=== PATIENT | female | born 1960 | race African-American/Black ===

== ENCOUNTER 2016-08-28 14:26 | Emergency (ER) | payer OTHER ==
[~2016-08-28] VITALS: Ht 157.5 cm; Wt 45.4 kg
--- NOTE | 2016-08-28 14:41 | NUR ---
PT BIB FRIEND C/O ANXIETY STATING SHE IS HAVING A "PANIC ATTACK" WITH HX OF PANIC ATTACKS AND ANXIETY. PT APPEARS ANXIOUS AND IS TEARY UPON EXAM. RESP EVEN UNLABORED. REPORTS CP X4-5 DAYS AND 3 DAYS OF N/V X1/D. DIARRHEA RESOLVED NOW. DENIES BLOOD IN VOMIT OR STOOL. NAD NOTED. AMBULATORY WITH STEADY GAIT. IN ER BED 12.
[2016-08-28 15:52] LABS: BASOPHILS % (AUTO) 0.3 % (0.0-2.0); EOSINOPHILS % (AUTO) 0.7 % (0.0-6.0); HEMATOCRIT 43 % (33-45); HEMOGLOBIN 13.9 g/dL (11.5-14.8); LYMPHOCYTES # (AUTO) 1.1 /CMM (0.8-4.8); LYMPHOCYTES % (AUTO) 16.6 % (20.0-44.0); MEAN CORPUSCULAR HEMOGLOBIN 27 PG (26.0-33.0); MEAN CORPUSCULAR HGB CONC 32 g/dl (31.0-36.0); MEAN CORPUSCULAR VOLUME 84 fL (82-100); MONOCYTES # (AUTO) 0.4 /CMM (0.1-1.30); MONOCYTES % (AUTO) 6.5 % (2.0-12.0); NEUTROPHILS # (AUTO) 4.9 /CMM (1.8-8.9); NEUTROPHILS % (AUTO) 75.9 % (43.0-81.0); PLATELET COUNT (AUTO) 326 /CMM (150-450); RDW COEFFICIENT OF VARIATION 12.4 (11.5-15.0); RED BLOOD CELL COUNT(AUTO) 5.09 MIL/uL (4.0-5.2); WHITE BLOOD COUNT (AUTO) 6.4 K/uL (4.3-11.0)
[2016-08-28] MEDS ORDERED: IV NS 0.9% 1,000 ML ONE (16:00)
[2016-08-28] MEDS ORDERED: IV SET PRIMARY 1 EA INFUS.SET MC ONE (16:00)
[2016-08-28] MEDS ORDERED: MORPHINE SULFATE INJ 4 MG/ML DISP.SYRIN ONE (16:00)
[2016-08-28] MEDS ORDERED: ONDANSETRON HCL/PF 4 MG/2 ML VIAL ONE (16:00)
[2016-08-28 16:06] LABS: PROTHROMBIN TIME 10.4 SECS (9.5-12.7)
[2016-08-28 16:09] LABS: ALBUMIN 3.4 g/dL (3.4-5.0); BILIRUBIN,TOTAL 0.2 mg/dL (0.2-1.0); CALCIUM, SERUM 9.2 mg/dL (8.5-10.1); CREATININE 0.7 mg/dL (0.6-1.3); TOTAL PROTEIN, SERUM 6.5 g/dL (6.4-8.2)
[2016-08-28] MEDS: IV NS 0.9% 1,000 ML BAG IV ONE (16:17)
[2016-08-28] MEDS: MORPHINE SULFATE INJ 2 MG/ML DISP.SYRIN IV ONE (16:17)
[2016-08-28] MEDS: ONDANSETRON HCL/PF 4 MG/2 ML VIAL IVP ONE (16:18)
[2016-08-28] MEDS ORDERED: IOHEXOL-350 100 ML VIAL IV ONE (16:20)
[2016-08-28] MEDS ORDERED: IV NS 0.9% 250 ML IV ONE (16:20)
--- NOTE | 2016-08-28 16:23 | NUR ---
RELISH MAKER AT BEDSIDE FOR CT PREP
--- NOTE | 2016-08-28 17:08 | NUR ---
RESTING QUIETLY, NAD NOTED. VSS. ALL NEEDS ATTENDED TO.
--- NOTE | 2016-08-28 17:48 | NUR ---
PT DISCHARGED BUT REFUSED TO VERBALIZE UNDERSTAND BECAUSE PT STARTED YELLING AT ME WHILE DISCHARGING AND THROWING BELONGINGS AROUND ROOM. AMBULATED FRO INGRID WITH STEADY GAIT. IV removed. Catheter intact and site benign. Pressure and 4x4 applied to site. No bleeding noted.
[2016-08-28 17:50] VITALS: BP 138/69
== END 2016-08-28 17:51 | disposition home or self-care (01) ==
LOC: ER 14:33
DX: K52.9 Noninfective gastroenteritis and colitis, unspecified (principal); M79.7 Fibromyalgia; F41.9 Anxiety disorder, unspecified; M54.9 Dorsalgia, unspecified; G89.29 Other chronic pain; F17.200 Nicotine dependence, unspecified, uncomplicated
CPT/HCPCS: 36415; 80048-TC; 80076-TC; 83690-TC; 85025-TC; 85730-TC; A4606; J2270; J2405; J7030; J7050; Q9967; Z7610

== ENCOUNTER 2021-09-16 16:45 | Emergency (ER) | payer OTHER ==
[~2021-09-16] VITALS: Ht 157.5 cm; Wt 49.9 kg
--- NOTE | 2021-09-16 17:16 | NUR ---
BIBS FOR C/O ABDOMINAL PAIN 10/10 AND NAUSEA PT STATED SHE CAME FROM [facility]RGENT [facility] AND SAID SHE HAD ULCERS. VITALS ARE WITHIN NORMAL LIMITS, NO RESP DISTRESS NOTED. AWAITING MD HUGGINS.
[2021-09-16 17:17] VITALS: BP 123/65
--- NOTE | 2021-09-16 17:29 | NUR ---
PT UNALBLE TO PROVIDED URINE AT THIS TIME.
[2021-09-16] MEDS ORDERED: ONDANSETRON HCL/PF 4 MG/2 ML VIAL IVP ONE (18:00)
[2021-09-16] MEDS ORDERED: IV NS 0.9% 1,000 ML BAG IV ONE (18:00)
[2021-09-16] MEDS ORDERED: MAG HYDROX/AL HYDROX/SIMETH 30 ML UDC PO ONE (18:00)
[2021-09-16] MEDS ORDERED: MORPHINE SULFATE INJ 2 MG/ML DISP.SYRIN IV ONE ×2 (18:00→20:00)
[2021-09-16] MEDS ORDERED: LIDOCAINE VISCOUS 2% UD 15 ML UDC MM ONE (18:00)
[2021-09-16] MEDS ORDERED: LIDOCAINE VISCOUS 2% UD 15 ML UDC ONE (18:01)
[2021-09-16] MEDS ORDERED: ONDANSETRON HCL/PF 4 MG/2 ML VIAL ONE (18:01)
[2021-09-16] MEDS ORDERED: MAG HYDROX/AL HYDROX/SIMETH 30 ML UDC ONE (18:01)
--- NOTE | 2021-09-16 18:07 | NUR ---
pt taken to ct via [facility]
[2021-09-16 18:18] LABS: CALCIUM, SERUM 8.1 mg/dL (8.5-10.1); CREATININE 0.5 mg/dL (0.6-1.3); POTASSIUM 4.3 mmol/L (3.5-5.1)
[2021-09-16 18:25] LABS: ALBUMIN 3.2 g/dL (3.4-5.0); BILIRUBIN,TOTAL 0.3 mg/dL (0.2-1.0); TOTAL PROTEIN, SERUM 6.2 g/dL (6.4-8.2)
[2021-09-16 18:29] LABS: BASOPHILS % (AUTO) 0.8 % (0.0-2.0); EOSINOPHILS % (AUTO) 0.8 % (0.0-6.0); HEMATOCRIT 37 % (33-45); HEMOGLOBIN 12.4 g/dL (11.5-14.8); LYMPHOCYTES # (AUTO) 0.9 K/uL (0.8-4.8); LYMPHOCYTES % (AUTO) 15.9 % (20.0-44.0); MEAN CORPUSCULAR HGB CONC 33 g/dl (31.0-36.0); MEAN CORPUSCULAR VOLUME 88 fL (82-100); MONOCYTES # (AUTO) 0.4 K/uL (0.1-1.30); MONOCYTES % (AUTO) 7.2 % (2.0-12.0); NEUTROPHILS # (AUTO) 4.3 K/uL (1.8-8.9); NEUTROPHILS % (AUTO) 75.3 % (43.0-81.0); PLATELET COUNT (AUTO) 284 K/uL (150-450); RED BLOOD CELL COUNT(AUTO) 4.27 MIL/uL (4.0-5.2); WHITE BLOOD COUNT (AUTO) 5.7 K/uL (4.3-11.0)
--- NOTE | 2021-09-16 18:52 | NUR ---
URINE COLLECTED AND SENT
[2021-09-16] MEDS ORDERED: KETOROLAC TROMETHAMINE INJ 30 MG/ML VIAL ONE (19:28)
[2021-09-16] MEDS ORDERED: KETOROLAC TROMETHAMINE INJ 30 MG/ML VIAL IV ONE (19:30)
[2021-09-16 19:32] LABS: BILIRUBIN,URINE NEGATIVE (NEGATIVE); COLOR,URINE YELLOW (YELLOW); LEUKOCYTE ESTERASE ,URINE TRACE (NEGATIVE); NITRITE, URINE NEGATIVE (NEGATIVE); PROTEIN,URINE NEGATIVE (NEGATIVE); UGLUCOSE NEGATIVE (NEGATIVE)
[2021-09-16] MEDS ORDERED: MORPHINE SULFATE INJ 2 MG/ML DISP.SYRIN ONE (19:32)
[2021-09-16 19:48] LABS: BACTERIA,URINE Few /HPF (None Seen); RBC,URINE 0-2 /HPF (0-2)
[2021-09-16 19:49] LABS: SQUAMOUS EPITHELIAL CELL,UR Moderate /HPF (None Seen)
--- NOTE | 2021-09-16 20:40 | NUR ---
IV removed. Catheter intact and site benign. Pressure and 4x4 applied to site. No bleeding noted.
--- NOTE | 2021-09-16 20:49 | NUR ---
Patient eloped from facility. ER MD notified.
== END 2021-09-16 20:52 | disposition left against medical advice (07) ==
LOC: ER 16:51
DX: R10.13 Epigastric pain (principal); N20.0 Calculus of kidney; N39.0 Urinary tract infection, site not specified; G89.29 Other chronic pain; F41.9 Anxiety disorder, unspecified; M79.7 Fibromyalgia; M19.90 Unspecified osteoarthritis, unspecified site; F17.200 Nicotine dependence, unspecified, uncomplicated
CPT/HCPCS: 36415; 74176; 76700; 80048; 80076; 81001; 83690; 85025; 87077; 87086; 87186; 96361; 96374; 96375; 99284; J1885; J2270; J2405; J7030